=== PATIENT | female | born 1940 | race Caucasian/White ===

== ENCOUNTER 2016-12-10 08:03 | Day surgery (SDC) | payer MEDICARE, BC ==
[2016-12-07 10:05] LABS: HEMATOCRIT 40.6 % (36.0-48.0); HEMOGLOBIN 13.3 g/dL (12.0-16.0)
[~2016-12-10] VITALS: Ht 162.6 cm; Wt 43.1 kg
[~2016-12-10 08:03] MED LIST: ASA5GR PO; ATV.5 PO; CRESTOR5 MG PO; VITAMIN B-121000 MC1 SL
== END 2016-12-10 13:27 | disposition home or self-care (01) ==
LOC: SDC 08:03
PROVIDERS: Ophthalmology
PROC: 08RK3JZ Replacement of Left Lens with Synthetic Substitute, Percutaneous Approach (ICD-10-PCS; principal; 2016-12-10 11:30)
DX: H25.12 Age-related nuclear cataract, left eye (principal); I10 Essential (primary) hypertension; Z85.3 Personal history of malignant neoplasm of breast; Z79.82 Long term (current) use of aspirin; Z79.899 Other long term (current) drug therapy; Z90.710 Acquired absence of both cervix and uterus; Z98.890 Other specified postprocedural states
CPT/HCPCS: 85014; 85018; 93005; A9270-GY; J2405; J3010; V2787